=== PATIENT | female | born 1950 | race Caucasian/White ===

== ENCOUNTER 2022-07-12 13:10 | Emergency (ER) | payer MEDICARE, OTHER ==
[~2022-07-12] VITALS: Ht 162.5 cm; Wt 73.2 kg
[2022-07-12 13:22] VITALS: BP 127/77
[2022-07-12 13:25] LABS: BASOPHILS % (AUTO) 1 % (0-10); EOSINOPHILS # (AUTO) 0.1 10^3/uL (0.0-0.3); EOSINOPHILS % (AUTO) 2 % (0-10); HEMATOCRIT 39 % (35-52); HEMOGLOBIN 13.4 g/dL (11.5-16.0); LYMPHOCYTES # (AUTO) 1.9 10^3/uL (1.0-4.0); LYMPHOCYTES % (AUTO) 21 % (12-44); MEAN CORPUSCULAR HEMOGLOBIN 30 pg (25-34); MEAN CORPUSCULAR HGB CONC 34 g/dL (32-36); MEAN CORPUSCULAR VOLUME 87 fL (80-99); MONOCYTES # (AUTO) 0.8 10^3/uL (0.0-1.0); MONOCYTES % (AUTO) 9 % (0-12); NEUTROPHILS # (AUTO) 5.8 10^3/uL (1.8-7.8); NEUTROPHILS % (AUTO) 67 % (42-75); PLATELET COUNT 351 10^3/uL (130-400); WHITE BLOOD COUNT 8.7 10^3/uL (4.3-11.0)
--- NOTE | 2022-07-12 13:44 | ED Fall/Injury ---
General Chief Complaint: Trauma-Non Activation Stated Complaint: FALL; HEAD INJ Nursing Triage Note: Patient brought in via EMS with c/o dizziness when she went to stand with syncopal episode. EMS stated patient hit her head. Pt. denies any chest pain or shortness of breath before or after incident. Pt. denies being on any blood thinners. Pt. has hematoma to Rt. side of forehead. No abrasions or lacerations. No active bleeding from forehead. Pt. is alert and oriented. bilat. home maker equal and strong. Patient states she was visiting her spouse at the assisted when this happened. Source: patient, EMS Exam Limitations: no limitations History of Present Illness Date Seen by Provider: Jul 12, 2022 Time Seen by Provider: 12:53 Initial Comments Patient presents via EMS where they picked her up from a nursing facility where she was visiting her . She stood up to go to the restroom and had a syncopal episode, striking the right side of her head. She does recall getting lightheaded but did not have any chest pain, shortness of breath or other symptoms prior to passing out. No history of syncope. She is not on any blood thinning medicines. She states she feels better now outside of mild headache. No other injuries. All other systems reviewed and negative except documented per HPI. Voice recognition software was used to help create this chart Allergies and Home Medications Allergies Coded Allergies: No Known Drug Allergies (Unverified , 07/12/22) Patient Home Medication List Home Medication List Reviewed: Yes Review of Systems Review of Systems Constitutional: no symptoms reported Past Hwzpdtf-Clzygh-Mbouly Hx Patient Social History Tobacco Use?: No Use of E-Cig and/or Vaping dev: No Substance use?: No Alcohol Use?: Yes Alcohol Frequency: Rarely Immunizations Up To Date Influenza Vaccine Up-to-Date: Yes; Up-to-Date Physical Exam Vital Signs Vital Signs - First Documented 07/12/22 13:22 Temp 36.9 Pulse 86 Resp 16 B/P (MAP) 127/77 (94) Pulse Ox 95 O2 Delivery Room Air Capillary Refill : Height, Weight, BMI Height: '" Weight: lbs. oz. kg; 27.00 BMI Method: General Appearance: WD/WN, no apparent distress HEENT: normal ENT inspection, pharynx normal, other (Cephalhematoma right anterior forehead, moderate-sized) Neck: non-tender, supple, normal inspection Cardiovascular: regular rate, rhythm, no murmur Respiratory: chest non-tender, lungs clear, normal breath sounds, no respiratory distress, no accessory muscle use Gastrointestinal: normal bowel sounds, non tender, soft, no organomegaly, no pulsatile mass Back: normal inspection, no vertebral tenderness Extremities: normal range of motion, non-tender, normal inspection, no pedal edema, no calf tenderness, normal capillary refill Neurologic/Psychiatric: connie scratcher II-XII nml as tested, no motor/sensory deficits, alert, normal mood/affect, oriented x 3 Skin: normal color, warm/dry Progress/Results/Core Measures Results/Orders Lab Results Laboratory Tests Test 07/12/22 13:12 Range/Units White Blood Count 8.7 4.3-11.0 10^3/uL Red Blood Count 4.52 3.80-5.11 10^6/uL Hemoglobin 13.4 11.5-16.0 g/dL Hematocrit 39 35-52 % Mean Corpuscular Volume 87 80-99 fL Mean Corpuscular Hemoglobin 30 25-34 pg Mean Corpuscular Hemoglobin Concent 34 32-36 g/dL Red Cell Distribution Width 12.6 10.0-14.5 % Platelet Count 351 130-400 10^3/uL Mean Platelet Volume 10.0 9.0-12.2 fL Immature Granulocyte % (Auto) 0 % Neutrophils (%) (Auto) 67 42-75 % Lymphocytes (%) (Auto) 21 12-44 % Monocytes (%) (Auto) 9 0-12 % Eosinophils (%) (Auto) 2 0-10 % Basophils (%) (Auto) 1 0-10 % Neutrophils # (Auto) 5.8 1.8-7.8 10^3/uL Lymphocytes # (Auto) 1.9 1.0-4.0 10^3/uL Monocytes # (Auto) 0.8 0.0-1.0 10^3/uL Eosinophils # (Auto) 0.1 0.0-0.3 10^3/uL Basophils # (Auto) 0.0 0.0-0.1 10^3/uL Immature Granulocyte # (Auto) 0.0 0.0-0.1 10^3/uL Sodium Level 130 L 135-145 MMOL/L Potassium Level 4.2 3.6-5.0 MMOL/L Chloride Level 94 L 98-107 MMOL/L Carbon Dioxide Level 22 21-32 MMOL/L Anion Gap 14 5-14 MMOL/L Blood Urea Nitrogen 17 7-18 MG/DL Creatinine 0.91 0.60-1.30 MG/DL Estimat Glomerular Filtration Rate 66 BUN/Creatinine Ratio 19 Glucose Level 354 H 70-105 MG/DL Calcium Level 9.6 8.5-10.1 MG/DL My Orders Orders - KAROLINAHUGOWHITNEY Chris DO Cbc With Automated Diff (07/12/22 13:13) Basic Metabolic Panel (07/12/22 13:13) Ekg Tracing (07/12/22 13:13) Ct Head Wo (07/12/22 13:13) Acetaminophen Tablet (Tylenol Tablet) (07/12/22 13:45) Medications Given in ED Current Medications Medications Dose Ordered Sig/Marilee Route Start Time Stop Time Status Last Admin Dose Admin Acetaminophen 1,000 mg ONCE ONCE PO 07/12/22 13:45 07/12/22 13:46 DC 07/12/22 13:50 1,000 MG Vital Signs/I&O 07/12/22 13:22 Temp 36.9 Pulse 86 Resp 16 B/P (MAP) 127/77 (94) Pulse Ox 95 O2 Delivery Room Air Blood Pressure Mean: 94 Comment Independent read of the EKG shows sinus rhythm at 80 bpm. Left axis deviation. Normal intervals. No ST or T wave abnormalities. No ectopy. Departure Communication (Admissions) I have independently reviewed the CT scan of her head and it shows no intracranial hemorrhage. She is given Tylenol after confirmation that there is no traumatic injury that required surgery. She has no other injuries. Lab work-up is unremarkable. EKG shows no evidence for dysrhythmia. She has vital signs that are normal otherwise. Symptoms most consistent with orthostatic hypotension given the circumstances just after she stood up. She feels back to normal, has been ambulatory, tolerating p.o. She is discharged home Impression Primary Impression: Fall Qualified Codes: W19.XXXA - Unspecified fall, initial encounter Additional Impressions: Closed head injury Qualified Codes: S09.90XA - Unspecified injury of head, initial encounter Cephalohematoma Disposition: HOME, SELF-CARE Condition: Stable Departure-Patient Inst. Patient Instructions: Minor Head Injury (DC) Add. Discharge Instructions: Increase your fluids at home, rest. Be careful when going from lying to sitting or sitting to standing, getting your bearings before stepping to walk or move. Use Tylenol or ibuprofen as needed for headache. Return to the emergency de partment for any severe concerns All discharge instructions reviewed with patient and/or family. Voiced understanding. WHITNEY TURCIOS DO Jul 12, 2022 13:44
[2022-07-12] MEDS ORDERED: ACETAMINOPHEN 500 MG TAB (TYLENOL) PO ONE (13:45)
[2022-07-12 13:47] LABS: POTASSIUM 4.2 MMOL/L (3.6-5.0)
[2022-07-12 13:48] LABS: CALCIUM 9.6 MG/DL (8.5-10.1); CREATININE SERUM 0.91 MG/DL (0.60-1.30)
--- NOTE | 2022-07-12 13:52 | Diagnostic Imaging Report ---
PROCEDURE: CT head without contrast. TECHNIQUE: Multiple contiguous axial images were obtained through the brain without the use of intravenous contrast. Auto Exposure Controls were utilized during the CT exam to meet ALARA standards for radiation dose reduction. DATE: July 12, 2022. COMPARISON: None. INDICATION: 72-year-old female, fall. Head injury. FINDINGS: There is soft tissue swelling in the region of the right forehead likely reflecting site of soft tissue contusion in the appropriate clinical scenario. The ventricles and cerebral spinal fluid spaces are of normal size and configuration for the patient's age. There is no mass effect or midline shift. There is no acute intracranial hemorrhage. There is no abnormal extra-axial fluid collection. The visualized portions of the paranasal sinuses, mastoid air cells and middle ears are well aerated. IMPRESSION: 1. No identified acute intracranial abnormality. 2. Soft tissue hematoma in the region of the right forehead. Dictated by: Dictated on workstation # [id number]
== END 2022-07-12 14:13 | disposition home or self-care (01) ==
LOC: ER FS 13:12
DX: S06.2XAA Diffuse traumatic brain injury with loss of consciousness status unknown, initial encounter (principal); W19.XXXA Unspecified fall, initial encounter; W22.8XXA Striking against or struck by other objects, initial encounter
CPT/HCPCS: 36415; 70450; 80048; 85025; 93005